=== PATIENT | male | born 1970 | race Hispanic/Latino ===

== ENCOUNTER → 2018-02-25 | Outpatient (CLI) | payer BC ==
[~2018-02-25] MED LIST: REGADENOSON 0.4 MG/5 ML SYR IV ONE
--- NOTE | 2018-02-27 10:37 | Cardiology Report ---
DATE OF STUDY: February 25, 2018 PROCEDURE: Nuclear myocardial perfusion scan using Lexiscan. Lexiscan injection at 0.4 mg intravenously . Myoview injected at 10.8 millicuries resting protocol 30 minutes for stress protocol. IMPRESSION 1. Abnormal gaited myocardial perfusion scan. 2. Mild anterior wall ischemia noted. 3. Left ventricular ejection fraction 50%. Mild anterior wall hypokinesia noted. This test is supervised and also nuclear interpretation done by Dr. Doss. Job#: [id number]
== END ==
LOC: NM 07:34
PROVIDERS: ATTEND Internal Medicine Cardiovascular Disease
DX: I25.10 Atherosclerotic heart disease of native coronary artery without angina pectoris (principal); R94.39 Abnormal result of other cardiovascular function study
CPT/HCPCS: 78452; 93017; A9502

== ENCOUNTER → 2018-07-10 | Outpatient (CLI) | payer BC ==
--- NOTE | 2018-07-10 19:24 | Cardiology Report ---
DATE OF STUDY: July 10, 2018 NUCLEAR GATED MYOCARDIAL PERFUSION SCAN A nuclear gated myocardial perfusion scan performed as per protocol at [facility]. Lexiscan injected 0.4 mg intravenously as a stress agent, and Myoview injected 10 mCi for resting protocol and 31 mCi for stress protocol. I supervised and interrupted the nuclear stress test. IMPRESSION 1. Inferior wall scar noted. 2. No ischemia noted. 3. Left ventricular ejection fraction is 60%. Job#: [id number]
== END ==
LOC: NM 07:31
PROVIDERS: ATTEND Internal Medicine Cardiovascular Disease
DX: I25.10 Atherosclerotic heart disease of native coronary artery without angina pectoris (principal); R07.9 Chest pain, unspecified; Z95.5 Presence of coronary angioplasty implant and graft
CPT/HCPCS: 78452; 93017; A9502

== ENCOUNTER → 2023-01-21 | Day surgery (SDC) | payer BC ==
[~2023-01-21] MED LIST changes: +ASPIRIN81 MG PO; +LIDOCAINE HCL 2% LOCAL INJ 5 ML SDV VIAL INJ ONE; +METOPROLOL SUCC25 MG PO; +PLAVIX75 MG PO; +PROPOFOL IV EMULSION 10 MG/ML 20 ML VIAL ONE; -REGADENOSON 0.4 MG/5 ML SYR IV ONE
[2023-01-21 10:40] VITALS: BP 132/79
== END | disposition home or self-care (01) ==
LOC: OR 07:09
PROVIDERS: ATTEND Internal Medicine Gastroenterology
DX: Z12.11 Encounter for screening for malignant neoplasm of colon (principal); D12.2 Benign neoplasm of ascending colon; R19.4 Change in bowel habit; K57.30 Diverticulosis of large intestine without perforation or abscess without bleeding; K62.5 Hemorrhage of anus and rectum; K64.8 Other hemorrhoids; G47.33 Obstructive sleep apnea (adult) (pediatric); I25.10 Atherosclerotic heart disease of native coronary artery without angina pectoris; I10 Essential (primary) hypertension; I25.2 Old myocardial infarction; Z79.02 Long term (current) use of antithrombotics/antiplatelets; Z79.82 Long term (current) use of aspirin; Z79.899 Other long term (current) drug therapy; Z68.42 Body mass index [BMI] 45.0-49.9, adult; Z95.5 Presence of coronary angioplasty implant and graft
CPT/HCPCS: 45384; J2001; J2704